=== PATIENT | female | born 1965 | race Two or more races ===

== ENCOUNTER 2017-02-10 11:09 | Emergency (ER) | payer MEDICAID, OTHER ==
[~2017-02-10] VITALS: Ht 152.4 cm; Wt 70.0 kg
[~2017-02-10 11:09] MED LIST: IBUPROFEN
[2017-02-10] MEDS ORDERED: IBUPROFEN 600MG TABLET PO ONE (14:30)
[2017-02-10 14:45] VITALS: BP 147/70
== END 2017-02-10 14:49 | disposition home or self-care (01) ==
LOC: ER 11:27
DX: L02.411 Cutaneous abscess of right axilla (principal); R03.0 Elevated blood-pressure reading, without diagnosis of hypertension
CPT/HCPCS: 99283